=== PATIENT | female | born 1955 | race Caucasian/White ===

== ENCOUNTER → 2020-08-18 | Outpatient (REF) | payer BC ==
[2020-08-18 14:16] LABS: CALCIUM, URINE 6.7 MG/DL; CREATININE, URINE < 13.0 MG/DL
[2020-08-18 15:25] LABS: CALCIUM, 24 HOUR URINE 214.4 MG/24HR (42-353); TOTAL VOLUME, URINE 3200 ML
== END ==
LOC: M LAB REF 13:42
PROVIDERS: ATTEND Internal Medicine Endocrinology, Diabetes & Metabolism
DX: E83.52 Hypercalcemia (principal)

== ENCOUNTER → 2020-10-16 | Outpatient (CLI) | payer BC ==
--- NOTE | 2020-10-16 15:08 | REP ---
INDICATION: HYPERCALCEMIA. COMPARISON: None. TECHNIQUE: 27.3 mCi of technetium 99 M sestamibi is injected. 15 minutes and 3 hour delayed images are acquired of the neck and chest. SPECT imaging acquisition is acquired as well and reconstructed sagittal, coronal, and axial images are reviewed. FINDINGS: Initial images demonstrate expected salivary gland and thyroid lobe uptake bilaterally in the head and neck region. There is no abnormal focus of increased uptake in the mediastinum. 3 hour delayed images show washout from the thyroid. No retained neck or mediastinal uptake focus is seen to suggest parathyroid adenoma. 3D SPECT images show no additional abnormality. IMPRESSION: Negative parathyroid sestamibi scintigraphy. <Electronically signed by Zack Juares > 10/16/20 [id number]
== END ==
LOC: M RAD 09:24
PROVIDERS: ATTEND Internal Medicine Endocrinology, Diabetes & Metabolism
DX: E83.52 Hypercalcemia (principal)

== ENCOUNTER → 2020-10-27 | Outpatient (CLI) | payer BC ==
[2020-10-27 14:45] LABS: BLOOD UREA NITROGEN 15 MG/DL (7-18); CALCIUM LEVEL 10.4 MG/DL (8.8-10.2); CARBON DIOXIDE LEVEL 32 MEQ/L (21-32); CHLORIDE LEVEL 102 MEQ/L (98-107); CREATININE FOR GFR 0.49 MG/DL (0.55-1.30); GLOMERULAR FILTRATION RATE > 60.0 (>45); GLUCOSE, FASTING 100 MG/DL (70-100); POTASSIUM SERUM 5.3 MEQ/L (3.5-5.1); SODIUM LEVEL 137 MEQ/L (136-145)
[2020-10-27 14:58] LABS: TOTAL 25(OH) VITAMIN D 30.6 NG/ML (30.0-100.0)
[2020-10-27 14:59] LABS: PTH INTACT 69.2 PG/ML (18.5-88.0)
== END ==
LOC: M PLALAB 11:13
PROVIDERS: ATTEND Nurse Practitioner Family
DX: E83.52 Hypercalcemia (principal)

== ENCOUNTER → 2020-11-05 | Outpatient (CLI) | payer BC ==
[~2020-11-05] MED LIST: FISH1000 PO
== END ==
LOC: M LABSMTC 08:07
PROVIDERS: ATTEND Anesthesiology
DX: Z01.812 Encounter for preprocedural laboratory examination (principal); Z20.822 Contact with and (suspected) exposure to COVID-19

== ENCOUNTER 2020-11-10 08:31 | Day surgery (SDC) | payer BC ==
[~2020-11-10] VITALS: Ht 167.6 cm; Wt 56.2 kg
[~2020-11-10 08:31] MED LIST changes: +LIDOCAINE 2% 100MG/5ML SDV (FOR ANES.) As Ordered ONE; +NS 1,000 ML IV ONE; +propofoL 200 MG/20 ML VIAL As Ordered ONE
--- NOTE | 2020-11-10 09:52 | ROOR ---
Patient Name: Veena Russell Procedure Date: 11/10/2020 9:30 AM Date of : 1955 Age: 65 Room: [facility] Gender: Female Note Status: Finalized Procedure: Colonoscopy Indications: Screening for colorectal malignant neoplasm Providers: Jez KESSLER MD Referring MD: Angelica CARTER MD Requesting Provider: Medicines: Monitored Anesthesia Care Complications: No immediate complications. Procedure: Pre-Anesthesia Assessment: - The heart rate, respiratory rate, oxygen saturations, blood pressure, adequacy of pulmonary ventilation, and response to care were monitored throughout the procedure. The Colonoscope was introduced through the anus and advanced to the terminal ileum. The colonoscopy was performed without difficulty. The patient tolerated the procedure well. The quality of the bowel preparation was good. Findings: The perianal and digital rectal examinations were normal. A 5 mm polyp was found in the mid descending colon. The polyp was sessile. The polyp was removed with a cold snare. Resection and retrieval were complete. Small Internal Hemorrhoids. The exam was otherwise without abnormality on direct and retroflexion views. Impression: - One 5 mm polyp in the mid descending colon, removed with a cold snare. Resected and retrieved. - Small Internal Hemorrhoids. - The examination was otherwise normal on direct and retroflexion views. Recommendation: - Repeat colonoscopy in 5 years for surveillance. Procedure Code(s): --- Professional --- 93995, Colonoscopy, flexible; with removal of tumor(s), polyp(s), or other lesion(s) by snare technique Diagnosis Code(s): --- Professional --- K63.5, Polyp of colon Z12.11, Encounter for screening for malignant neoplasm of colon CPT copyright 2019 [employer]. All rights reserved. The codes documented in this report are preliminary and upon parts representative review may be revised to meet current compliance requirements. Jez Kessler MD Jez KESSLER MD 11/10/2020 9:53:26 AM Electronically signed by Jez KESSLER MD Number of Addenda: 0 Note Initiated On: 11/10/2020 9:30 AM Estimated Blood Loss: Estimated blood loss: none.
[2020-11-10 10:15] VITALS: BP 134/79
== END 2020-11-10 10:25 | disposition home or self-care (01) ==
LOC: M OPP 08:31
PROVIDERS: ATTEND Internal Medicine Gastroenterology
DX: Z12.11 Encounter for screening for malignant neoplasm of colon (principal); K63.5 Polyp of colon; K64.8 Other hemorrhoids

== ENCOUNTER → 2021-01-27 | Outpatient (CLI) | payer BC ==
[~2021-01-27] MED LIST changes: -LIDOCAINE 2% 100MG/5ML SDV (FOR ANES.) As Ordered ONE; -NS 1,000 ML IV ONE; -propofoL 200 MG/20 ML VIAL As Ordered ONE
== END ==
LOC: M LABSMTC 09:03
PROVIDERS: ATTEND Surgery
DX: Z20.828 Contact with and (suspected) exposure to other viral communicable diseases (principal); Z11.59 Encounter for screening for other viral diseases

== ENCOUNTER → 2021-08-07 | Outpatient (REF) | payer BC ==
[2021-08-07 12:31] LABS: PHOSPHORUS LEVEL 3.5 MG/DL (2.5-4.9)
[2021-08-07 12:59] LABS: PTH INTACT 67.2 PG/ML (18.5-88.0)
== END ==
LOC: M LAB REF 11:27
PROVIDERS: ATTEND Internal Medicine
DX: E83.52 Hypercalcemia (principal)

== ENCOUNTER → 2022-11-29 | Outpatient (REF) | payer BC | LOC: M PLALAB 10:53 | PROVIDERS: ATTEND Nurse Practitioner Family | DX: Z12.4 Encounter for screening for malignant neoplasm of cervix (principal); N95.2 Postmenopausal atrophic vaginitis | CPT/HCPCS: 87624; G0123 ==

== ENCOUNTER → 2023-10-13 | Outpatient (CLI) | payer BC | LOC: M PLAIMG 10:09 | PROVIDERS: ATTEND Internal Medicine | DX: R07.89 Other chest pain (principal) ==

== ENCOUNTER → 2023-12-09 | Outpatient (CLI) | payer BC | LOC: M RAD 09:46 | PROVIDERS: ATTEND Internal Medicine | DX: R91.8 Other nonspecific abnormal finding of lung field (principal); D48.0 Neoplasm of uncertain behavior of bone and articular cartilage | CPT/HCPCS: 78306; A9503 ==

== ENCOUNTER → 2024-02-23 | Outpatient (CLI) | payer BC | LOC: M RAD 08:42 | PROVIDERS: ATTEND Internal Medicine | DX: D49.2 Neoplasm of unspecified behavior of bone, soft tissue, and skin (principal) ==

== ENCOUNTER → 2025-08-10 | Outpatient (CLI) | payer BC | LOC: M RAD 12:55 | PROVIDERS: ATTEND Nurse Practitioner Family | DX: E04.2 Nontoxic multinodular goiter (principal); H35.353 Cystoid macular degeneration, bilateral ==

== ENCOUNTER → 2025-08-10 | Outpatient (CLI) | payer BC ==
[2025-08-10 15:55] LABS: BASO # 0.1 10^3/uL (0.0-0.2); BASO % 1.1 % (0.0-1.0); EOS # 0.2 10^3/uL (0.0-0.5); EOS % 1.9 % (0.0-3.0); LYMPH # 1.7 10^3/uL (1.5-5.0); LYMPH % 20.0 % (24.0-44.0); MONO # 0.4 10^3/uL (0.0-0.8); MONO % 5.2 % (2.0-8.0); NEUTROPHILS # 5.9 10^3/uL (1.5-8.5); NEUTROPHILS % 71.4 % (36.0-66.0); PLATELET COUNT, AUTOMATED 413 10^3/uL (150-450)
[2025-08-10 16:19] LABS: C REACTIVE PROTEIN QUANTITATIV < 0.50 MG/DL (<1.0); CALCIUM LEVEL 9.9 MG/DL (8.3-10.6); CARBON DIOXIDE LEVEL 26 MMOL/L (20-31); CHLORIDE LEVEL 99 MMOL/L (98-107); CREATININE FOR GFR 0.46 MG/DL (0.55-1.30); GLOMERULAR FILTRATION RATE > 90.0 (>39); POTASSIUM SERUM 4.8 MMOL/L (3.5-5.1); SODIUM LEVEL 135 MMOL/L (136-145)
[2025-08-15 13:57] LABS: ANTI-U1 RNP AB <1.0 NEG AI (<1.0 NEG); RNP ANTIBODY <1.0 NEG AI (<1.0 NEG); SSA SJOGRENS A <1.0 NEG AI (<1.0 NEG); SSB SJOGRENS B <1.0 NEG AI (<1.0 NEG)
[2025-08-15 16:43] LABS: ANGIOTENSIN 1 CONVERTING ENZYM 5 U/L (9-67)
[2025-08-16 23:53] LABS: PTT-LA 35 sec (<=40)
[2025-08-21 10:42] LABS: ANTI DS-DNA AB Negative (Negative)
== END ==
LOC: M PLALAB 11:15
PROVIDERS: ATTEND Ophthalmology
DX: H35.353 Cystoid macular degeneration, bilateral (principal)

== ENCOUNTER → 2025-08-17 | Outpatient (CLI) | payer BC | LOC: M PLALAB 10:11 | PROVIDERS: ATTEND Ophthalmology | DX: H30.93 Unspecified chorioretinal inflammation, bilateral (principal) ==

== ENCOUNTER → 2025-08-23 | Outpatient (REF) | payer BC | LOC: M LAB REF 10:52 | PROVIDERS: ATTEND Ophthalmology | DX: H30.93 Unspecified chorioretinal inflammation, bilateral (principal) ==